=== PATIENT | male | born 1965 | race Caucasian/White ===

== ENCOUNTER → 2017-10-04 | Outpatient (CLI) | payer OTHER ==
--- NOTE | 2017-10-04 12:40 | Diagnostic Imaging Report ---
PROCEDURE: US THYROID COMPARISON: 11/08/2015 INDICATIONS:THYROID NODULE TECHNIQUE: Transverse and longitudinal baez-scale sonographic images of the thyroid were obtained and supplemented with color doppler. FINDINGS: Right thyroid lobe: 4.2 x 1.0 x 1.0 cm. Left thyroid lobe: 4.7 x 1.7 x 1.3 cm Isthmus: 0.5 cm Heterogeneous predominantly solid nodule in the left midpole measures 1.2 x 0.7 x 0.8 cm (previously 1.0 0.7 x 0.8 cm). CONCLUSION: Normal sized thyroid. Stable left lobe nodule without any suspicious imaging features. Dictated by: Lefty Pham M.D. on 10/04/2017 at 12:49 Electronically approved by: Lefty Pham M.D. on 10/04/2017 at 12:49
== END ==
LOC: US 11:23
PROVIDERS: ATTEND Family Medicine
DX: E04.1 Nontoxic single thyroid nodule (principal)
CPT/HCPCS: 76536

== ENCOUNTER → 2018-12-26 | Day surgery (SDC) | payer OTHER ==
[~2018-12-26] MED LIST: FENTANYL CITRATE/PF 100MCG/2 ML INJ ONE; FISH OIL 1,0001 EAC2 PO; HYOSCYAMINE SULFATE 0.5 MG/ML INJ ONE; MIDAZOLAM HCL 2 MG/2 ML VIAL ONE; MULTI-VITAMIN1 EACH PO; PROPOFOL IV EMULSION 10 MG/ML 50 ML VIAL ONE
--- OUTSIDE RECORDS SUMMARY | 2018-12-26 06:35 | XMS REPORT ---
Author Author [facility] Address Unknown Phone Unavailable Care Team Providers Care Business Database Analyst Name Role Phone HALEY ÁLVAREZ Unavailable Unavailable Problems This patient has no known problems. Allergies, Adverse Reactions, Alerts This patient has no known allergies or adverse reactions. Medications This patient has no known medications. Results Test Description Test Time Test Comments Text Results Atomic Results Result Comments US THYROID [place] [address] Patient Name: MANUEL ALBERTO II MR #: [id number] : 1965 Age/Sex: 52/M Req #: [id number] Adm Physician: Ordered by: HALEY ÁLVAREZ DO Report #: [id number] Location: US Room/Bed: Procedure: [id number] US/US THYROID Exam Date: Exam Time: REPORT STATUS: Signed PROCEDURE: US THYROID COMPARISON: 11/08/2015 INDICATIONS: THYROID NODULE TECHNIQUE: Transverse and longitudinal baez-scale sonographic images of the thyroid were obtained and supplemented with color doppler. FINDINGS: Right thyroid lobe: 4.2 x 1.0 x 1.0 cm. Left thyroid lobe: 4.7 x 1.7 x 1.3 cm Isthmus: 0.5 cm Heterogeneous predominantly solid nodule in the left midpole measures 1.2 x 0.7 x 0.8 cm (previously 1.0 0.7 x 0.8 cm). CONCLUSION: Normal sized thyroid. Stable left lobe nodule without any suspicious imaging features. Dictated by: Mirza Pham M.D. on 10/04/2017 at 12:49 Electronically approved by: Mirza Pham M.D. on 10/04/2017 at 12:49 Dictated By: MIRZA PHAM MD [id number] Transcribed By: SHIRLEY on 10/04/17 1249 COPY TO: HALEY ÁLVAREZ DO
[2018-12-26 12:45] VITALS: BP 125/84
--- NOTE | 2018-12-26 18:47 | Operative Report ---
DATE OF PROCEDURE: 12/26/2018 SURGEON: Ronald Cohn MD PROCEDURE: EGD with biopsies and colonoscopy with polypectomy. INDICATIONS FOR EGD: History of nodule, GE junction. INDICATIONS FOR COLONOSCOPY: Surveillance colonoscopy, personal history of colon polyps. MEDICATIONS: The patient was done under MAC, please see anesthesiologist's note. PROCEDURE IN DETAIL: With the patient in the left lateral decubitus position, flexible fiberoptic Olympus gastroscope was introduced into the esophagus under direct visualization without any difficulty. There was some patchy erythema noted in distal esophagus. An approximately 3-mm nodule was noted at the GE junction that was biopsied. The scope was then advanced with ease into the stomach. Mucosa overlying the antrum and the body revealed some patchy erythema, [id number] edema, and biopsies were obtained and sent to stain for Helicobacter pylori. Several gastric polyps, body, hyperplastic-appearing were noted and somewhat partially excised with the cold biopsy forceps. Pylorus was intubated with ease, and the scope was advanced all the way to the second portion of the duodenum. Biopsies were obtained from the proximal second portion and duodenal bulb to rule out sprue. The scope was then withdrawn back into the stomach and retroflexed and mucosa overlying the fundus of the cardia appeared to be within normal limits. The scope was then straightened out. It was subsequently withdrawn. The patient tolerated the procedure well. IMPRESSION: 1. Distal esophagitis. 2. Nodule, gastroesophageal junction, approximately 3 mm in size, biopsied. 3. Gastritis, biopsied, and biopsies sent to stain for Helicobacter pylori. 4. Rule out sprue. PLAN: Follow up histology. Initiate Protonix 40 mg 1 p.o. q.a.m. before meals. The patient was then turned around. After adequate lubrication of the anal canal, a flexible fiberoptic Olympus colonoscope was inserted into the rectum with ease and advanced all the way to the cecum. It was then withdrawn slowly, and the mucosa overlying the cecum, ascending colon, transverse colon, and descending colon appeared to be within normal limits. Some diverticular disease was noted in the distal descending and the sigmoid. Three minute polyps were hot biopsied from the rectum. The scope was then retroflexed into the distal rectum and small internal hemorrhoids were noted, none of which was actively bleeding. The scope was then straightened out. It was subsequently withdrawn. The patient tolerated the procedure well. IMPRESSION: 1. Diverticulosis. 2. Rectal polyps x3, hot biopsied. 3. Internal hemorrhoids, none actively bleeding. PLAN: Followup histology. Initiate high-fiber, low-fat diet. Initiate high-fiber supplement. The patient might benefit from a followup colonoscopy in 3 to 5 years. Ronald Cohn MD [facility]/PAM /[id number] cc: Giancarlo Grey DO
== END | disposition home or self-care (01) ==
LOC: OR 06:33
PROVIDERS: ATTEND Internal Medicine Gastroenterology
DX: K20.8 Other esophagitis (principal); K62.1 Rectal polyp; K31.7 Polyp of stomach and duodenum; K29.70 Gastritis, unspecified, without bleeding; K29.80 Duodenitis without bleeding; K44.9 Diaphragmatic hernia without obstruction or gangrene; K57.30 Diverticulosis of large intestine without perforation or abscess without bleeding; K64.8 Other hemorrhoids; Z01.810 Encounter for preprocedural cardiovascular examination; Z68.27 Body mass index [BMI] 27.0-27.9, adult
CPT/HCPCS: 43239; 45384; 93005; J1980; J2250; J2704; 45378